=== PATIENT | male | born 1960 | race Caucasian/White ===

== ENCOUNTER → 2017-12-16 | Outpatient (CLI) | payer OTHER | LOC: STAR 13:34 | PROVIDERS: ATTEND Internal Medicine | DX: Z02.9 Encounter for administrative examinations, unspecified (principal) ==

== ENCOUNTER 2017-12-22 08:06 | Day surgery (SDC) | payer OTHER ==
[~2017-12-22] VITALS: Ht 177.8 cm; Wt 85.4 kg
[2017-12-22] MEDS ORDERED: LIDOCAINE-MPF 1%, 2ML ONE (08:35)
[2017-12-22] MEDS ORDERED: LACTATED RINGERS 1,000 ML IV SCH (08:48)
[2017-12-22] MEDS ORDERED: LIDOCAINE-MPF 1%, 2ML INFIL ONE (09:00)
[2017-12-22] MEDS ORDERED: PROPOFOL 10 MG/ML, 20ML ONE ×6 (09:56)
[2017-12-22] MEDS ORDERED: HYDROcodone/APAP 7.5-325MG/15ML UDC PO PRN (10:00)
[2017-12-22] MEDS ORDERED: PROMETHAZINE 25 MG/ML, 1ML IV PRN (10:00)
[2017-12-22] MEDS ORDERED: OXYcodone 5 MG/5 ML ORAL.SOL UDC PO PRN (10:00)
[2017-12-22] MEDS ORDERED: ACETAMINOPHEN 325 MG TABLET PO PRN (10:00)
[2017-12-22] MEDS ORDERED: ONDANSETRON ODT 8 MG PO PRN (10:00)
[2017-12-22] MEDS ORDERED: PROPOFOL 150 ML ONE (10:14)
== END 2017-12-22 11:55 ==
LOC: OUT 08:06
PROVIDERS: ATTEND Internal Medicine
DX: K63.89 Other specified diseases of intestine (principal); Z91.018 Allergy to other foods
CPT/HCPCS: 45391; J2704; J3490; J7120